=== PATIENT | male | born 1945 | race Caucasian/White ===

== ENCOUNTER → 2021-02-13 | Outpatient (CLI) | payer MEDICARE ==
--- NOTE | 2021-02-14 09:21 | CT ---
EXAMINATION TYPE: CT angio neck DATE OF EXAM: 02/13/2021 HISTORY: left side stenosis COMPARISON: 03/19/2013 CT DLP: 397.6 mGycm. Automated Exposure Control for Dose Reduction was Utilized. TECHNIQUE: CTA scan of the neck is performed with IV Contrast, patient injected with 65 mL of Isovue 370, axial images are obtained, coronal and sagittal reformatted images are reviewed. 3D reconstruct ed images are created on an independent workstation and reviewed. FINDINGS: Visualized subclavian arteries are patent in the aorta is patent. Mild atherosclerotic plaq ue. The brachiocephalic artery appears to be patent. The common carotid arteries appear to be of norm al caliber and patent proximally. There is atherosclerotic plaque at the left carotid bifurcation. Within the proximal left ICA there i s an 80-90% proximal left ICA stenosis. At the level of the carotid bifurcation on the right there is complete occlusion of the external wallis tid artery. There is moderate soft atherosclerotic plaque and approximately 50-60% stenosis. There is prominence of the lower pole left thyroid suspicious for a 1.5 cm thyroid nodule. Hypertroph ic and degenerative changes of the spine. Biapical pleural thickening. IMPRESSION: 1. Severe 80-90% stenosis proximal left ICA 2. Moderate approximately 50-60% stenosis origin right ICA. 3. Occlusion right external carotid artery. 4. 1.5 cm lower pole left thyroid nodule. NASCET criteria was used in interpretation of this exam?
== END | disposition home or self-care (01) ==
LOC: RADCTMAIN 15:17
PROVIDERS: ATTEND Internal Medicine Interventional Cardiology
DX: I65.23 Occlusion and stenosis of bilateral carotid arteries (principal)
CPT/HCPCS: 82565; 84520; 70498; 36415; Q9967

== ENCOUNTER → 2021-03-28 | Outpatient (CLI) | payer MEDICARE | END | disposition home or self-care (01) | LOC: LABPAT 09:25 | PROVIDERS: ATTEND Surgery | DX: Z01.812 Encounter for preprocedural laboratory examination (principal); I63.232 Cerebral infarction due to unspecified occlusion or stenosis of left carotid arteries | CPT/HCPCS: 80051; 81003; 82565; 84520; 85025; 86850; 86900; 86901 ==

== ENCOUNTER 2021-04-02 08:36 | Inpatient (IN) | payer MEDICARE ==
[2021-03-28 10:56] LABS: Basophils % (A) 1 %; Eosinophils # (A) 0.1 k/uL (0-0.7); Eosinophils % (A) 2 %; HCT 41.3 % (39.0-53.0); Lymphocytes # (A) 1.1 k/uL (1.0-4.8); Lymphocytes % (A) 18 %; MCHC 33.9 g/dL (31.0-37.0); MCV 88.4 fL (80.0-100.0); Mean Platelet Volume 8.6; Monocytes # (A) 0.4 k/uL (0-1.0); Monocytes % (A) 6 %; Neutrophils # (A) 4.3 k/uL (1.3-7.7); Neutrophils % (A) 71 %; Platelet Count 195 k/uL (150-450); RBC 4.67 m/uL (4.30-5.90); RDW 12.6 % (11.5-15.5); WBC 6.1 k/uL (3.8-10.6)
[2021-03-28 11:17] LABS: African American GFR (CKD) >90 (>60 ml/min/1.73 sqM); Anion Gap 5 mmol/L; Blood Urea Nitrogen 16 mg/dL (9-20); Carbon Dioxide 29 mmol/L (22-30); Chloride 104 mmol/L (98-107); Non-African American GFR(CKD) 82 (>60 ml/min/1.73 sqM); Sodium 138 mmol/L (137-145)
[2021-03-28 11:18] LABS: Appearance,Urine Clear (Clear); Bilirubin,Urine Negative (Negative); Blood,Urine Negative (Negative); Color,Urine Yellow; Glucose,Urine (UA) Negative (Negative); Ketones,Urine Negative (Negative); Leukocyte Esterase,Urine Negative (Negative); Nitrite,Urine Negative (Negative); PH, Urine 6.5 (5.0-8.0); Protein,Urine Negative (Negative); Specific Gravity,Urine 1.016 (1.001-1.035); Urobilinogen,Urine <2.0 mg/dL (<2.0)
[2021-03-29 13:44] VITALS: BMI 25.5
[~2021-04-02 08:36] MED LIST: ALPRAZolam 0.25 MG TAB PO PRN; ALPRAZolam 0.5 MG TAB PO PRN; ASPIRIN 325 MG TAB PO PRN; ASPIRIN 81 MG PO PRN; CEFAZOLIN IRRIGATION PRN; CLOPIDOGREL 75 MG TAB PO PRN; DEXAMETHASONE SOD PHOSPHATE 4 MG/ML 1 ML VIAL IV ONE; HYDROmorphone 0.5 MG/0.5 ML SYRINGE IVP PRN; NITROGLYCERIN SL TABS 0.4 MG TAB SUBLINGUAL PRN; ONDANSETRON 4 MG/2 ML VIAL IVP ONE; SODIUM CHLORIDE 0.9% 1,000 ML in EMPTY BAG 1 BAG IV ONE; SODIUM CHLORIDE 0.9% IRRIGATION PRN; ceFAZolin 1,000 MG in SODIUM CHLORIDE 0.9% IRRIGATIO 250 ML IRRIGATION PRN
[2021-04-02] MEDS ORDERED: RX INFO: IV CONTRAST WAS GIVEN 1 EACH MISC MISCELLANE PRN (09:00)
[2021-04-02] MEDS ORDERED: SODIUM CHLORIDE 0.9% 1,000 ML IV ONE (09:16)
[2021-04-02] MEDS ORDERED: LIDOCAINE 1% INJ 10MG/ML (20 ML MDV) ONE ×2 (10:01→11:07)
[2021-04-02] MEDS ORDERED: DEXMEDETOMIDINE 200 MCG/2 ML VIAL IV ONE (11:15)
[2021-04-02] MEDS ORDERED: HEPARIN SODIUM,PORCINE 10,000 UNIT/ML 1 ML VIAL ONE (11:15)
[2021-04-02] MEDS ORDERED: PROTAMINE SULFATE 10 MG/ML 5 ML VIAL IV ONE (11:15)
[2021-04-02] MEDS ORDERED: hydrALAZINE HCL 20 MG/ML 1 ML VIAL ONE (11:15)
[2021-04-02] MEDS ORDERED: GLYCOPYRROLATE 0.2 MG/ML 2 ML VIAL ONE (11:15)
[2021-04-02] MEDS ORDERED: LABETALOL 5 MG/ML VIAL MDV ONE (11:15)
[2021-04-02] MEDS ORDERED: .fentaNYL (PF) 50 MCG/ML 2 ML AMP ONE (11:15)
[2021-04-02] MEDS ORDERED: MIDAZOLAM 2 MG/2 ML VIAL ONE (11:15)
[2021-04-02] MEDS ORDERED: LIDOCAINE 1% INJ 10MG/ML (20 ML MDV) SQ ONE (11:50)
[2021-04-02] MEDS ORDERED: IOPAMIDOL-250 100ML BTL INTRAARTER ONE (13:02)
[2021-04-02] MEDS ORDERED: MAG HYDROX/AL HYDROX/SIMETH 30 ML CUP PO PRN (13:24)
[2021-04-02] MEDS ORDERED: ATROPINE SULFATE 0.1 MG/ML 10ML SYRINGE IV PRN (13:24)
--- NOTE | 2021-04-02 13:33 | P.OP ---
Description of Procedure: Date: 04/02/2021 Preoperative diagnosis: Left internal carotid artery stenosis greater than 90% asymptomatic Postoperative diagnosis: Same Procedure: Left Transcarotid artery revascularization with stenting Surgeon: aEgle Serrano DO Pricing Coordinator: None Anesthesia: MAC Complications none Condition: Stable Flow reversal time: 10 minutes Lesion length: 20 mm Stent size: 8 x 40 mm Indication for procedure: 75-year-old gentleman who presented to the office secondary to carotid stenosis and was found to have greater than 90% narrowing on his left internal carotid artery on ultrasound as well as CT angiogram. After discussion with the patient for possible intervention it was determined that he would benefit from transfer carotid artery revascularization secondary to the fact that he has had multiple treatments of radiation to his neck for cancer. He presents today for such procedure. Operative narrative: After written and informed consent was obtained the patient all risks benefits and competitions were described the patient was brought to the [facility] and laid in a supine position. The area of the neck and groins were prepped and draped in usual sterile fashion after appropriate anesthetic was performed per the anesthesiologist. A timeout was performed in normal fashion and antibiotics were administered prior to incision. Utilizing ultrasound the left common carotid artery was located and a transverse incision was created overlying this area. Dissection was carried between the sternocleidomastoid musculature down to the carotid sheath. The sheath was then incised and the common carotid artery was located and dissected free in a circumferential manner and controlled with umbilical tape. Once controlled at tention was placed down to the common femoral vein on the right and utilizing ultrasound the vein was cannulated and the 8[place] sheath was placed in normal fashion. Attention was then placed back to the carotid artery and the patient was administered heparin and followed with ACTs and redosed as needed for ACT above 200. A pursestring suture was then placed at the common carotid artery with 6-0 Prolene and utilizing a multipurpose needle the common carotid artery was accessed and wire was placed followed by a 4-[place] sheath. Carotid angiogram was then obtained demonstrating significant stenosis greater than 90% in the internal carotid artery. Stiff wire was then placed followed by the 8 [place] sheath. Flow reversal was then established with the enroute SCRAP CRANE OPERATOR system after patient's blood pressure was increased to above 160, heart rate above 60 and ACT above 250. 014 wire was then placed across the lesion followed by a 5 x 30 mm balloon and balloon angioplasty was performed followed by an 8 x 40 mm [place] stent. Postdilatation was a performed and final angiogram was obtained demonstrating complete resolution of the stenosis. All guidewires and catheters were removed and the sheath was removed and the arteriotomy was secured with the previously placed pursestring suture. Hemostasis was assured with Gelfoam and thrombin. The femoral sheath was also removed and pressure was held for hemostasis. The patient all procedure well and was moving all extremities and following commands. She was then sent to PACU for recovery.
[2021-04-02] MEDS: SODIUM CHLORIDE 0.9% 1,000 ML IV SCH (14:16)
[2021-04-02] MEDS ORDERED: lisinopriL 20 MG TAB PO STA (15:26)
--- NOTE | 2021-04-02 16:06 | IR ---
EXAMINATION TYPE: IR stent intravas non coronary DATE OF EXAM: 04/02/2021 CLINICAL HISTORY: Left carotid stenosis. TECHNIQUE: Fluoroscopy. COMPARISON: CTA neck February 13, 2021. FINDINGS: Fluoroscopic guidance was provided during carotid angiogram with stent insertion procedure performed by Dr. Serrano. A total of 4 minutes 24 seconds of fluoroscopic time was utilized during the procedure and 0 spot images sent to PACS. IMPRESSION: As Above.
[2021-04-02] MEDS: LEVOTHYROXINE 75 MCG TAB PO SCH (18:09)
[2021-04-02] MEDS: LACTATED RINGERS 1,000 ML IV SCH ×2 (21:13→21:14)
[2021-04-03 04:04] VITALS: RESP 18
[2021-04-03] MEDS: LEVOTHYROXINE 75 MCG TAB PO SCH (06:22)
[2021-04-03] MEDS: SODIUM CHLORIDE 0.9% 1,000 ML IV SCH (06:22)
[2021-04-03] MEDS ORDERED: LEVOTHYROXINE 75 MCG TAB PO SCH (06:30)
[2021-04-03 06:55] LABS: Basophils % (A) 0 %; Eosinophils # (A) 0.1 k/uL (0-0.7); Eosinophils % (A) 2 %; HCT 35.3 % (39.0-53.0); HGB 12.5 gm/dL (13.0-17.5); Lymphocytes % (A) 12 %; MCH 30.7 pg (25.0-35.0); MCHC 35.4 g/dL (31.0-37.0); MCV 86.7 fL (80.0-100.0); Mean Platelet Volume 8.6; Monocytes # (A) 0.4 k/uL (0-1.0); Monocytes % (A) 5 %; Neutrophils # (A) 6.2 k/uL (1.3-7.7); Neutrophils % (A) 79 %; Platelet Count 160 k/uL (150-450); RBC 4.07 m/uL (4.30-5.90); RDW 12.6 % (11.5-15.5); WBC 7.8 k/uL (3.8-10.6)
[2021-04-03 07:07] LABS: African American GFR (CKD) >90 (>60 ml/min/1.73 sqM); Anion Gap 6 mmol/L; Blood Urea Nitrogen 16 mg/dL (9-20); Calcium 8.2 mg/dL (8.4-10.2); Carbon Dioxide 23 mmol/L (22-30); Chloride 110 mmol/L (98-107); Glucose 85 mg/dL (74-99); Non-African American GFR(CKD) 89 (>60 ml/min/1.73 sqM); Potassium 3.6 mmol/L (3.5-5.1); Sodium 139 mmol/L (137-145)
[2021-04-03] MEDS ORDERED: PANTOPRAZOLE 40 MG TABLET PO SCH (07:30)
[2021-04-03] MEDS ORDERED: CLOPIDOGREL 75 MG TAB PO SCH ×2 (09:00)
[2021-04-03] MEDS ORDERED: ASPIRIN 325 MG TAB PO SCH (09:00)
[2021-04-03] MEDS ORDERED: SILDENAFIL 20 MG TAB PO SCH (09:00)
[2021-04-03] MEDS ORDERED: lisinopriL 20 MG TAB PO SCH (09:00)
[2021-04-03] MEDS ORDERED: CHOLECALCIFEROL 25 MCG (1000 IU) TABLET PO SCH (09:00)
[2021-04-03] MEDS ORDERED: ASPIRIN 81 MG PO SCH (09:00)
--- NOTE | 2021-04-03 09:43 | P.DS ---
Providers Date of admission: 04/02/21 08:44 Expected date of discharge: 04/03/21 Attending physician: Eagle Serrano DO Consults: 04/02/21 13:24 Consult Physician Routine Consulting Provider: Americo Brown Reason/Comments: medical management Do you want consulting provider notified?: Yes Primary care physician: Adeola Madison Hospital Course: Discharge diagnosis: Left internal carotid artery stenosis greater than 90% symptomatic, status post left trans-carotid artery revascularization with stenting This a 75-year-old gentleman with medical history of carotid stenosis, hyperlipidemia, hypertension, GERD, hypothyroidism, and tachycardia who presented for carotid artery revascularization for greater than 90% stenosis of the left internal carotid artery as seen on CT angiogram of head and neck. He is postop day #1 for left trans-carotid artery revascularization with stenting. He has been up and ambulating. He has voided. He ate breakfast this morning and tolerated it well. He denies any focal deficits. Vital signs have been stable. Labs are unremarkable. Patient would like to be discharged home. Physical Exam: General appearance: The patient is alert, oriented, appears in no acute distress. HET: Head is normocephalic and atraumatic. Pupils are equal and reactive. Neck: Supple without lymphadenopathy. Trachea midline. Incision on left side and not well approximated, no hematoma or ecchymosis noted. Heart: S1 S2. Regular rate and rhythm. Lungs: Clear to auscultation. Abdomen: Soft, nontender, nondistended. Extremities: Normal skin color and turgor. No cyanosis, rash, ulceration, clubbing, or edema. Radial and pedal pulses are 2/4 bilaterally. Neurological: No focal deficits. Strength and sensation are grossly intact. The impression and plan of care has been dictated as directed. Dr. Serrano I performed a history and examination of this patient, discussed the same with the dictator. I agree with the dictator's note ,documented as a scribe. Any additional findings or plans will be noted. Procedures: Left trans-carotid artery revascularization with stenting Patient Condition at Discharge: Good Plan - Discharge Summary Discharge Rx Participant: Yes New Discharge Prescriptions: Continue Aspirin 81 mg PO DAILY Pantoprazole [Protonix] 40 mg PO DAILY Atorvastatin [Lipitor] 10 mg PO DAILY Clopidogrel [Plavix] 75 mg PO DAILY Sildenafil [Revatio] 20 mg PO DAILY Levothyroxine Sodium [Synthroid] 75 mcg PO DAILY Cholecalciferol [Vitamin D3 (25 Mcg = 1000 Iu)] 25 mcg PO DAILY lisinopriL 40 mg PO DAILY Discharge Medication List Aspirin 81 mg PO DAILY 03/29/21 [History] Atorvastatin [Lipitor] 10 mg PO DAILY 03/29/21 [History] Cholecalciferol [Vitamin D3 (25 Mcg = 1000 Iu)] 25 mcg PO DAILY 03/29/21 [History] Clopidogrel [Plavix] 75 mg PO DAILY 03/29/21 [History] Levothyroxine Sodium [Synthroid] 75 mcg PO DAILY 03/29/21 [History] Pantoprazole [Protonix] 40 mg PO DAILY 03/29/21 [History] Sildenafil [Revatio] 20 mg PO DAILY 03/29/21 [History] lisinopriL 40 mg PO DAILY 03/29/21 [History] Follow up Appointment(s)/Referral(s): Eagle Serrano DO [STAFF PHYSICIAN] - 04/10/21 2:15 pm Patient Instructions/Handouts: Carotid Artery Stent Placement (DC) Activity/Diet/Wound Care/Special Instructions: No Heavy lifting or strenuous activity until follow-up with Dr. Serrano. No tub bathing or soaking until follow-up with Dr. Serrano. You may shower within the next 24 hours with soap and water. Continue all home medications. Discharge Disposition: HOME SELF-CARE
[2021-04-03 10:46] VITALS: BP 127/68; PULSE 50; TEMP 97.6
== END 2021-04-03 11:43 | disposition home or self-care (01) | DRG 36 ==
LOC: 2ORMAIN 08:44 → 3SCARD 15:13
PROVIDERS: ADMIT Family Medicine; ATTEND Surgery
PROC: B3171ZZ Fluoroscopy of Left Internal Carotid Artery using Low Osmolar Contrast (ICD-10-PCS; principal; 2021-04-02 11:00)
PROC: 037L3DZ Dilation of Left Internal Carotid Artery with Intraluminal Device, Percutaneous Approach (ICD-10-PCS; principal; 2021-04-02 11:00)
DX: I65.22 Occlusion and stenosis of left carotid artery (principal); K21.9 Gastro-esophageal reflux disease without esophagitis; I10 Essential (primary) hypertension; E78.5 Hyperlipidemia, unspecified; E03.9 Hypothyroidism, unspecified; Z79.890 Hormone replacement therapy; Z20.822 Contact with and (suspected) exposure to COVID-19
CPT/HCPCS: 37215; 80048; 80051; 81003; 82565; 84520; 85025; 86850; 86900; 86901; 87635

== ENCOUNTER 2021-05-06 19:47 | Emergency (ER) | payer MEDICARE ==
[2021-05-06 20:36] VITALS: RESP 16
[2021-05-06 20:58] LABS: Basophils % (A) 1 %; Eosinophils # (A) 0.1 k/uL (0-0.7); Eosinophils % (A) 1 %; HCT 41.9 % (39.0-53.0); HGB 14.2 gm/dL (13.0-17.5); Lymphocytes # (A) 1.2 k/uL (1.0-4.8); Lymphocytes % (A) 26 %; MCH 29.9 pg (25.0-35.0); MCHC 33.8 g/dL (31.0-37.0); MCV 88.4 fL (80.0-100.0); Mean Platelet Volume 8.8; Monocytes # (A) 0.4 k/uL (0-1.0); Monocytes % (A) 8 %; Neutrophils # (A) 2.9 k/uL (1.3-7.7); Neutrophils % (A) 61 %; Platelet Count 153 k/uL (150-450); RBC 4.74 m/uL (4.30-5.90); RDW 12.9 % (11.5-15.5); WBC 4.7 k/uL (3.8-10.6)
[2021-05-06 21:06] LABS: INR 0.9 (<1.2); Prothrombin Time 9.9 sec (9.0-12.0)
[2021-05-06 21:28] LABS: ALT 30 U/L (4-49); AST 28 U/L (17-59); African American GFR (CKD) >90 (>60 ml/min/1.73 sqM); Alkaline Phosphatase 47 U/L (38-126); Anion Gap 7 mmol/L; Blood Urea Nitrogen 18 mg/dL (9-20); Calcium 8.9 mg/dL (8.4-10.2); Carbon Dioxide 25 mmol/L (22-30); Chloride 107 mmol/L (98-107); Glucose 98 mg/dL (74-99); Non-African American GFR(CKD) 82 (>60 ml/min/1.73 sqM); Sodium 139 mmol/L (137-145); Total Bilirubin 0.6 mg/dL (0.2-1.3); Total Protein 6.4 g/dL (6.3-8.2)
--- NOTE | 2021-05-06 21:29 | XR ---
EXAMINATION TYPE: XR chest 2V DATE OF EXAM: 05/06/2021 COMPARISON: NONE HISTORY: Pain TECHNIQUE: 2 views FINDINGS: The heart and mediastinum are normal. Lungs are clear. Diaphragm is normal. Bony thorax is intact. There is old healed posterior left-sided rib fracture. IMPRESSION: Normal chest.
[2021-05-06 22:44] VITALS: BP 162/80; PULSE 57
--- NOTE | 2021-05-06 23:13 | ED ---
Recheck HPI - General Chief Complaint: Recheck/Abnormal Lab/Rx Stated Complaint: high blood pressure Time Seen by Provider: 05/06/21 22:53 Source: patient, RN notes reviewed, old records reviewed Mode of arrival: ambulatory Limitations: no limitations - History of Present Illness Initial Comments: This is a 75-year-old male presents today for evaluation regards to flexion blood pressure and states it's difficult to control blood pressure for some time now. Recent carotid artery surgery about a month ago dizziness and changes in questioning moving some dizziness lightheadedness. Patient's been checking his blood pressure multiple times a day and recently noted to be significantly elevated. Her blood pressure evaluation. Does note that is that he does have appointment in 2 days for reevaluation by primary care. MD Complaint: abnormal lab (elevated BP), other (dizziness, weakness) -: week(s) Returns Today for: other (abnormal blood pressure) Symptoms Since Prior Visit: no new symptoms Context: planned re-check ([employer] BP tonight 200s/100s) Treatments Prior to Arrival: other medications (recently lowered LIsinopril 40 ..10...back to 20mg) - Related Data Home Medications Medication Instructions Recorded Confirmed Aspirin 81 mg PO DAILY 03/29/21 04/02/21 Atorvastatin [Lipitor] 10 mg PO DAILY 03/29/21 04/02/21 Cholecalciferol [Vitamin D3 (25 25 mcg PO DAILY 03/29/21 04/02/21 Mcg = 1000 Iu)] Clopidogrel [Plavix] 75 mg PO DAILY 03/29/21 04/02/21 Levothyroxine Sodium [Synthroid] 75 mcg PO DAILY 03/29/21 04/02/21 Pantoprazole [Protonix] 40 mg PO DAILY 03/29/21 04/02/21 Sildenafil [Revatio] 20 mg PO DAILY 03/29/21 03/29/21 lisinopriL 40 mg PO DAILY 03/29/21 04/02/21 Allergies Allergy/AdvReac Type Severity Reaction Status Date / Time No Known Allergies Allergy Verified 05/06/21 20:37 Review of Systems ROS Statement: Those systems with pertinent positive or pertinent negative responses have been documented in the HPI. ROS Other: All systems not noted in ROS Statement are negative. Past Medical History Past Medical History: Cancer, GERD/Reflux, Hyperlipidemia Additional Past Medical History / Comment(s): States blockages in Carotids.,Squamous cell carcinoma of the head, also had chemo approx. 8 years ago. History of Any Multi-Drug Resistant Organisms: None Reported Past Surgical History: No Surgical Hx Reported Additional Past Surgical History / Comment(s): Bx. of squamous cell, colonoscopy. Past Anesthesia/Blood Transfusion Reactions: No Reported Reaction Past Psychological History: Anxiety Smoking Status: Never smoker Past Alcohol Use History: None Reported Past Drug Use History: None Reported - Past Family History Mother Family Medical History: Cancer Father Family Medical History: Cancer General Exam Limitations: no limitations General appearance: alert, in no apparent distress Head exam: Present: atraumatic, normocephalic, normal inspection Eye exam: Present: normal appearance, PERRL, EOMI. Absent: scleral icterus, conjunctival injection, periorbital swelling ENT exam: Present: normal exam, mucous membranes moist Neck exam: Present: normal inspection. Absent: tenderness, meningismus, lymphadenopathy Respiratory exam: Present: normal lung sounds bilaterally. Absent: respiratory distress, wheezes, rales, rhonchi, stridor Cardiovascular Exam: Present: regular rate, normal rhythm, normal heart sounds. Absent: systolic murmur, diastolic murmur, rubs, gallop, clicks GI/Abdominal exam: Present: soft, normal bowel sounds. Absent: distended, tenderness, guarding, rebound, rigid Extremities exam: Present: normal inspection, full ROM, normal capillary refill. Absent: tenderness, pedal edema, joint swelling, calf tenderness Back exam: Present: normal inspection Neurological exam: Present: alert, oriented X3, CN II-XII intact Psychiatric exam: Present: normal affect, normal mood Skin exam: Present: warm, dry, intact, normal color. Absent: rash Course Vital Signs 05/06/21 05/06/21 20:32 22:42 Temperature 97.7 F Pulse Rate 54 L 57 L Respiratory 16 16 Rate Blood Pressure 199/86 162/80 O2 Sat by Pulse 98 99 Oximetry - Reevaluation(s) Reevaluation #1: 05/06/21 23:11 Medical record is reviewed Reevaluation #2: 05/06/21 23:11 Blood pressure is of normal acceptable limit here in the emergency department Reevaluation #3: 05/06/21 23:11 constipation length regarding need to continue Plavix, increased medication back to original dosing. Reevaluation #4: 05/06/21 23:12 Patient was informed results and questions are answered Medical Decision Making - Medical Decision Making 75 male presents today for evaluation of increased blood pressure. Her uncontrolled blood pressure at home since had carotid artery surgery left, patient is no acute symptoms here in the ER feels well pressures controlled will follow-up with primary care on Friday - Lab Data Result diagrams: 05/06/21 20:53 05/06/21 20:53 Lab Results 05/06/21 05/06/21 05/06/21 Range/Units 20:53 20:53 20:53 WBC 4.7 (3.8-10.6) k/uL RBC 4.74 (4.30-5.90) m/uL Hgb 14.2 (13.0-17.5) gm/dL Hct 41.9 (39.0-53.0) % MCV 88.4 (80.0-100.0) fL MCH 29.9 (25.0-35.0) pg MCHC 33.8 (31.0-37.0) g/dL RDW 12.9 (11.5-15.5) % Plt Count 153 (150-450) k/uL MPV 8.8 Neutrophils % 61 % Lymphocytes % 26 % Monocytes % 8 % Eosinophils % 1 % Basophils % 1 % Neutrophils # 2.9 (1.3-7.7) k/uL Lymphocytes # 1.2 (1.0-4.8) k/uL Monocytes # 0.4 (0-1.0) k/uL Eosinophils # 0.1 (0-0.7) k/uL Basophils # 0.0 (0-0.2) k/uL PT 9.9 (9.0-12.0) sec INR 0.9 (<1.2) APTT 23.0 (22.0-30.0) sec Sodium 139 (137-145) mmol/L Potassium 4.0 (3.5-5.1) mmol/L Chloride 107 (98-107) mmol/L Carbon Dioxide 25 (22-30) mmol/L Anion Gap 7 mmol/L BUN 18 (9-20) mg/dL Creatinine 0.92 (0.66-1.25) mg/dL Est GFR (CKD-EPI)AfAm >90 (>60 ml/min/1.73 sqM) Est GFR (CKD-EPI)NonAf 82 (>60 ml/min/1.73 sqM) Glucose 98 (74-99) mg/dL Calcium 8.9 (8.4-10.2) mg/dL Magnesium 2.0 (1.6-2.3) mg/dL Total Bilirubin 0.6 (0.2-1.3) mg/dL AST 28 (17-59) U/L ALT 30 (4-49) U/L Alkaline Phosphatase 47 (38-126) U/L Troponin I (0.000-0.034) ng/mL Total Protein 6.4 (6.3-8.2) g/dL Albumin 4.0 (3.5-5.0) g/dL 05/06/21 Range/Units 20:53 WBC (3.8-10.6) k/uL RBC (4.30-5.90) m/uL Hgb (13.0-17.5) gm/dL Hct (39.0-53.0) % MCV (80.0-100.0) fL MCH (25.0-35.0) pg MCHC (31.0-37.0) g/dL RDW (11.5-15.5) % Plt Count (150-450) k/uL MPV Neutrophils % % Lymphocytes % % Monocytes % % Eosinophils % % Basophils % % Neutrophils # (1.3-7.7) k/uL Lymphocytes # (1.0-4.8) k/uL Monocytes # (0-1.0) k/uL Eosinophils # (0-0.7) k/uL Basophils # (0-0.2) k/uL PT (9.0-12.0) sec INR (<1.2) APTT (22.0-30.0) sec Sodium (137-145) mmol/L Potassium (3.5-5.1) mmol/L Chloride (98-107) mmol/L Carbon Dioxide (22-30) mmol/L Anion Gap mmol/L BUN (9-20) mg/dL Creatinine (0.66-1.25) mg/dL Est GFR (CKD-EPI)AfAm (>60 ml/min/1.73 sqM) Est GFR (CKD-EPI)NonAf (>60 ml/min/1.73 sqM) Glucose (74-99) mg/dL Calcium (8.4-10.2) mg/dL Magnesium (1.6-2.3) mg/dL Total Bilirubin (0.2-1.3) mg/dL AST (17-59) U/L ALT (4-49) U/L Alkaline Phosphatase (38-126) U/L Troponin I <0.012 (0.000-0.034) ng/mL Total Protein (6.3-8.2) g/dL Albumin (3.5-5.0) g/dL - Radiology Data Radiology results: report reviewed (Chest x-rays negative for acute disease), image reviewed Disposition Clinical Impression: Hypertension, uncontrolled Disposition: HOME SELF-CARE Condition: Good Instructions (If sedation given, give patient instructions): Hypertensive Crisis (ED) Is patient prescribed a controlled substance at d/c from ED?: No Referrals: Americo Brown MD [STAFF PHYSICIAN] - 1-2 days
[2021-05-06 23:17] VITALS: TEMP 98.2
== END 2021-05-06 23:17 | disposition home or self-care (01) ==
LOC: EC 19:47
DX: I10 Essential (primary) hypertension (principal); E78.5 Hyperlipidemia, unspecified; K21.9 Gastro-esophageal reflux disease without esophagitis; F41.9 Anxiety disorder, unspecified; Z79.890 Hormone replacement therapy; Z79.82 Long term (current) use of aspirin; Z79.899 Other long term (current) drug therapy
CPT/HCPCS: 36415; 71046; 80053; 83735; 84484; 85025; 85610; 85730; 93005; 99284

== ENCOUNTER 2023-05-01 08:29 | Day surgery (SDC) | payer MEDICARE ==
[2023-04-23 16:20] VITALS: BMI 26.1
[~2023-05-01 08:29] MED LIST changes: -ALPRAZolam 0.25 MG TAB PO PRN; -ALPRAZolam 0.5 MG TAB PO PRN; -ASPIRIN 325 MG TAB PO PRN; -ASPIRIN 81 MG PO PRN; -CEFAZOLIN IRRIGATION PRN; -CLOPIDOGREL 75 MG TAB PO PRN; -DEXAMETHASONE SOD PHOSPHATE 4 MG/ML 1 ML VIAL IV ONE; -HYDROmorphone 0.5 MG/0.5 ML SYRINGE IVP PRN; +LACTATED RINGERS 1,000 ML IV SCH; -NITROGLYCERIN SL TABS 0.4 MG TAB SUBLINGUAL PRN; -ONDANSETRON 4 MG/2 ML VIAL IVP ONE; -SODIUM CHLORIDE 0.9% 1,000 ML in EMPTY BAG 1 BAG IV ONE; -SODIUM CHLORIDE 0.9% IRRIGATION PRN; -ceFAZolin 1,000 MG in SODIUM CHLORIDE 0.9% IRRIGATIO 250 ML IRRIGATION PRN
[2023-05-01 10:15] VITALS: TEMP 98.2
[2023-05-01] MEDS ORDERED: PROPOFOL 10 MG/ML 20 ML VIAL IV ONE (11:08)
--- NOTE | 2023-05-01 11:24 | P.GSHP ---
History of Present Illness H&P Date: 05/01/23 Chief Complaint: screening colonoscopy This a 77-year-old male presents today for screening colonoscopy. Patient denies any significant GI complaints. Past Medical History Past Medical History: Cancer, GERD/Reflux, Hearing Disorder / Deafness, Hyperlipidemia, Hypertension, Thyroid Disorder Additional Past Medical History / Comment(s): Low heart rate. 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 Vertigo. Tinnitus left ear. History of Any Multi-Drug Resistant Organisms: None Reported Past Surgical History: No Surgical Hx Reported Additional Past Surgical History / Comment(s): Biopsy of squamous cell, colonoscopy, left carotid stent, bilateral cataract surgery. Past Anesthesia/Blood Transfusion Reactions: No Reported Reaction Additional Past Anesthesia/Blood Transfusion Reaction / Comment(s): Vertigo. Past Psychological History: Anxiety Additional Psychological History / Comment(s): Hx of anxiety, no longer a problem. Smoking Status: Never smoker Past Alcohol Use History: None Reported Past Drug Use History: None Reported - Past Family History Mother Family Medical History: Cancer Father Family Medical History: Cancer Medications and Allergies Home Medications Medication Instructions Recorded Confirmed Type Levothyroxine Sodium [Synthroid] 75 mcg PO PC-LUNCH 03/29/21 05/01/23 History Pantoprazole [Protonix] 40 mg PO PC-LUNCH 03/29/21 05/01/23 History Atorvastatin Calcium [Lipitor] 80 mg PO PC-LUNCH 01/15/23 05/01/23 History Aspirin [Adult Low Dose Aspirin EC] 81 mg PO DAILY 04/23/23 05/01/23 History Cholecalciferol [Vitamin D3 (25 50 mcg PO DAILY 04/23/23 05/01/23 History Mcg = 1000 Iu)] Losartan Potassium 100 mg PO QAM 04/23/23 05/01/23 History Meclizine [Antivert] 12.5 mg PO QAM 04/23/23 05/01/23 History Allergies Allergy/AdvReac Type Severity Reaction Status Date / Time No Known Allergies Allergy Verified 05/01/23 09:55 Surgical - Exam Vital Signs Temp Pulse Resp BP Pulse Ox 98.2 F 54 L 18 198/86 97 05/01/23 09:53 05/01/23 09:53 05/01/23 09:53 05/01/23 09:53 05/01/23 09:53 - General well developed, well nourished, no distress - Eyes PERRL - ENT normal pinna, normal nares - Neck no masses - Respiratory normal expansion - Cardiovascular Rhythm: regular - Abdomen Abdomen: soft, non tender Assessment and Plan Assessment: We'll perform screening colonoscopy.
--- NOTE | 2023-05-01 11:26 | P.OP ---
Date of Procedure: 05/01/23 Preoperative Diagnosis: Greening colonoscopy Postoperative Diagnosis: Mild diverticulosis Procedure(s) Performed: Colonoscopy Anesthesia: MAC Surgeon: Von Ahn Pathology: none sent Condition: stable Disposition: PACU Description of Procedure: Patient's placed on the endoscopy table in the lateral position. He received IV sedation. Digital rectal exam was performed. . This revealed no abnormalities. Prostate was symmetrical without nodules. Flexible colonoscope was then placed the patient's anus and passed throughout the entire colon. The ileocecal valve was visualized. The cecum, ascending and transverse colon appeared normal. In the descending and; there is mild diverticular changes. The scope was then brought back and the rectum and this appeared normal. Scope withdrawn for patient.
[2023-05-01 11:27] VITALS: RESP 16
[2023-05-01 11:51] VITALS: BP 102/68; PULSE 50
== END 2023-05-01 12:09 | disposition home or self-care (01) ==
LOC: ORWHC2ENDO 08:29
PROVIDERS: ATTEND Surgery
DX: Z12.11 Encounter for screening for malignant neoplasm of colon (principal); K57.30 Diverticulosis of large intestine without perforation or abscess without bleeding; K21.9 Gastro-esophageal reflux disease without esophagitis; I73.9 Peripheral vascular disease, unspecified; H91.90 Unspecified hearing loss, unspecified ear; E78.5 Hyperlipidemia, unspecified; I10 Essential (primary) hypertension; E07.9 Disorder of thyroid, unspecified; H93.12 Tinnitus, left ear; Z98.42 Cataract extraction status, left eye; Z98.41 Cataract extraction status, right eye; F41.9 Anxiety disorder, unspecified; Z80.9 Family history of malignant neoplasm, unspecified; Z79.890 Hormone replacement therapy; Z79.82 Long term (current) use of aspirin; Z79.899 Other long term (current) drug therapy; Z85.89 Personal history of malignant neoplasm of other organs and systems; Z98.890 Other specified postprocedural states
CPT/HCPCS: J2704; G0121

== ENCOUNTER → 2024-09-30 | Outpatient (CLI) | payer MEDICARE ==
--- NOTE | 2024-10-05 13:35 | MR ---
EXAMINATION TYPE: MR brain wo con DATE OF EXAM: 09/30/2024 9:48 AM COMPARISON: CT 01/15/2023 CLINICAL INDICATION: Male, 79 years old with history of R42 DIZZINESS GIDDINESS R41.3 AMNESIA H81.12, Lightheadedness, Memory loss, Vertigo, Numbness bilat feet Left foot worse, Hx of Squamous cell skin cancer head and neck 15 yrs ago TECHNIQUE: Multiplanar, multiecho imaging on a 3.0 Susana magnet is performed through the brain. Stud y is performed within 24 hours of arrival to the hospital.Multiplanar, multiecho imaging on a 3.0 Crissy la magnet is performed through the knee. IV Contrast: mL (None, if empty) FINDINGS: The craniovertebral junction is normal. The pituitary is normal. Optic chiasm as visualized is norm al. Diffusion-weighted imaging is performed. No abnormal hyperintensity is present to suggest an acute i ntracranial infarct or acute ischemic change. No suspicious cranial signal abnormality. Ventricles and sulci are appropriate for the patient age. IMPRESSION: 1. Unremarkable MRI. [facility], , 10/05/2024 1:32 PM
== END | disposition home or self-care (01) ==
LOC: RADMRIMAIN 08:42
PROVIDERS: ATTEND Psychiatry & Neurology Neurology
DX: R41.3 Other amnesia (principal); H81.12 Benign paroxysmal vertigo, left ear
CPT/HCPCS: 70551

== ENCOUNTER 2024-10-19 18:40 | Observation (INO) | payer MEDICARE ==
--- NOTE | 2024-10-19 19:43 | ED ---
General Adult HPI - General Chief complaint: Syncope Stated complaint: High blood pressure, heart rate is high Time Seen by Provider: 10/19/24 19:03 Source: patient, family Mode of arrival: ambulatory Limitations: no limitations - History of Present Illness Initial comments: Dictation was produced using [employer] dictation software. please excuse any grammatical, word or spelling errors. Chief Complaint: 79-year-old male with low blood pressure readings at home History of Present Illness: Patient 71-year-old male states that he has history of chronic dizziness. Patient states for the last 2 to 3 days he has been having some dizziness. Thinks that it is due to the recent heat that has been affecting her community recently. States that he was dizzy checked his blood pressure at home is around 80/54. Patient has any palpitations. Denies any h eart problems. Denies any fever, chills or night sweats at the bedside he feels fine. Denies sensation of room spinning. No prodrome of symptoms prior to dizziness. Denies sensation of the room spinning. The ROS documented in this emergency department record has been reviewed and confirmed by me. Those systems with pertinent positive or negative responses have been documented in the HPI. All other systems are other negative and/or noncontributory. - Related Data Home Medications Medication Instructions Recorded Confirmed Levothyroxine Sodium [Synthroid] 75 mcg PO DAILY 03/29/21 10/19/24 Pantoprazole [Protonix] 40 mg PO AC-BRKFST 03/29/21 10/19/24 Atorvastatin Calcium [Lipitor] 80 mg PO DAILY 01/15/23 10/19/24 Aspirin [Adult Low Dose Aspirin EC] 81 mg PO DAILY 04/23/23 10/19/24 Losartan Potassium 100 mg PO HS 04/23/23 10/19/24 Meclizine [Antivert] 12.5 mg PO DAILY 04/23/23 10/19/24 Sildenafil Citrate 25 mg PO DAILY PRN 10/19/24 10/19/24 hydroCHLOROthiazide [Hydrodiuril] 12.5 mg PO DAILY 10/19/24 10/19/24 Allergies Allergy/AdvReac Type Severity Reaction Status Date / Time soap Allergy Unknown Verified 10/19/24 20:07 Review of Systems ROS Statement: Those systems with pertinent positive or pertinent negative responses have been documented in the HPI. ROS Other: All systems not noted in ROS Statement are negative. Past Medical History Past Medical History: Cancer, GERD/Reflux, Hearing Disorder / Deafness, Hyperlipidemia, Hypertension, Thyroid Disorder Additional Past Medical History / Comment(s): Low heart rate. 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 Vertigo. Tinnitus left ear. History of Any Multi-Drug Resistant Organisms: None Reported Past Surgical History: No Surgical Hx Reported Additional Past Surgical History / Comment(s): Biopsy of squamous cell, colonoscopy, left carotid stent, bilateral cataract surgery. Past Anesthesia/Blood Transfusion Reactions: No Reported Reaction Additional Past Anesthesia/Blood Transfusion Reaction / Comment(s): Vertigo. Past Psychological History: Anxiety Smoking Status: Never smoker Past Alcohol Use History: None Reported Past Drug Use History: None Reported - Past Family History Mother Family Medical History: Cancer Father Family Medical History: Cancer General Exam - General Exam Comments Initial Comments: PHYSICAL EXAM: General Impression: Alert and oriented x3, not in acute distress HEENT: Normocephalic atraumatic, extra-ocular movements intact, pupils equal and reactive to light bilaterally, mucous membranes moist. Cardiovascular: Heart regular rate and rhythm Chest: Able to complete full sentences, no retractions, no tachypnea Abdomen: abdomen soft, non-tender, non-distended, no organomegaly Musculoskeletal: Pulses present and equal in all extremities, no peripheral edema Motor: no focal deficits noted Neurological: CN II-XII grossly intact, no focal motor or sensory deficits noted Skin: Intact with no visualized rashes Psych: Normal affect and mood Limitations: no limitations Course Vital Signs 10/19/24 10/19/24 18:56 19:32 Temperature 98.1 F Pulse Rate 55 L 52 L Respiratory 18 18 Rate Blood Pressure 125/70 124/65 O2 Sat by Pulse 100 98 Oximetry EKG Findings - EKG Comments: EKG Findings:: My EKG interpretation: Ventricular rate 53, sinus bradycardia,. Of 177, QRS 97, QTc 4 5. No MI prolongation, no QTC prolongation, no ST or T- wave changes noted. Overall, this EKG is unremarkable Medical Decision Making - Medical Decision Making Was pt. sent in by a medical professional or institution (, PA, [employer], urgent care, hospital, or retirement...) When possible be specific @ -No Did you speak to anyone other than the patient for history (EMS, parent, family, police, friend...)? What history was obtained from this source @ -No Did you review nursing and triage notes (agree or disagree)? Why? @ -I reviewed and agree with nursing and triage notes Were old charts reviewed (outside hosp., previous admission, EMS record, old EKG, old radiological studies, urgent care reports/EKG's, retirement records)? Report findings @ -No old charts were reviewed Differential Diagnosis (chest pain, altered mental status, abdominal pain women, abdominal pain men, vaginal bleeding, musculoskeletal, weakness, fever, dyspnea, syncope, headache, dizziness, GI bleed, back pain, seizure, CVA, palpatations, mental health)? @ -Differential Dizziness: Benign paroxysmal positional Vertigo, Meniere's disease, otitis media, acoustic neuroma, vertebrobasilar insufficiency, cerebellar stroke, encephalitis, hypovolemic, arrhythmia, coronary artery syndrome, anemia, this is not meant to be an all-inclusive list EKG interpreted by me (3pts min.). @ -See above X-rays interpreted by me (1pt min.). @ -Chest x-ray shows no acute processes CT interpreted by me (1pt min.). @ -None done U/S interpreted by me (1pt. min.). @ -None done What testing was considered but not performed or refused? (CT, X-rays, U/S, labs)? Why? @ -None What meds were considered but not given or refused? Why? @ -None Was smoking cessation discussed for >3mins.? @ -No Were there social determinants of health that impacted care today? How? (Homelessness, low income, unemployed, alcoholism, drug addiction, transportation, low edu. Level, literacy, decrease access to med. care, [facility], rehab)? @ -No Was there de-escalation of care discussed even if they declined (Discuss DNR or withdrawal of care, Hospice)? DNR status @ -No What co-morbidities impacted this encounter? (DM, HTN, Smoking, COPD, CAD, Cancer, CVA, ARF, Chemo, Hep., AIDS, mental health diagnosis, sleep apnea, morbid obesity)? @ -None Was patient admitted / discharged? Hospital course, mention meds given and route, prescriptions, significant lab abnormalities, going to OR and other pertinent info. @ -71-year-old male presents with dizziness. States that he had low blood pres sure at home. Vital signs upon arrival are within acceptable limits. Blood pressure is normal laboratory evaluation shows MEGHANN. Troponins negative. Patient given fluids will be admitted consultation to nephrology. Case discussed with hospitalist for admission Did you discuss the management of the patient with other professionals (professionals i.e. , PA, [employer], lab, RT, psych nurse, social worker masters, milk deliverer, teacher, founder chairman and chief creative officer, oil field caser)? Give summary @ -No Was critical care preformed (if so, how long)? @ -No Undiagnosed new problem with uncertain prognosis? @ -No Drug Therapy requiring intensive monitoring for toxicity (Heparin, Nitro, Insulin, Cardizem)? @ -No Were any procedures done? @ -No Diagnosis/symptom? Acute, or Chronic, or Acute on Chronic? Uncomplicated (without systemic symptoms) or Complicated (systemic symptoms)? @ -Acute kidney injury Side effects of treatment? @ -No Exacerbation, Progression, or Severe Exacerbation? @ -No Poses a threat to life or bodily function? How? (Chest pain, [place], [place], pneumonia, PE, COPD, DKA, ARF, appy, cholecystitis, CVA, Diverticulitis, Homicidal, Suicidal, threat to staff... and all critical care pts) @ -yes - Lab Data Result diagrams: 10/19/24 20:00 10/19/24 20:00 Lab Results 10/19/24 10/19/24 10/19/24 Range/Units 20:00 20:00 20:00 WBC 8.69 (4.50-10.00) 10*3/uL RBC 4.76 (4.40-5.60) 10*6/uL Hgb 14.4 (13.0-17.0) g/dL Hct 41.4 (39.6-50.0) % MCV 87.0 (80.0-97.0) fL MCH 30.3 (27.0-32.0) pg MCHC 34.8 (32.0-37.0) g/dL Plt Count 208 (140-440) 10*3/uL MPV 10.5 (9.5-12.2) fL Immature Gran % (Auto) 0.3 % Neutrophils % 78.2 % Lymphocytes % 11.7 % Monocytes % 8.6 % Eosinophils % 0.7 % Basophils % 0.5 % Immature Gran # 0.03 (0.00-0.04) 10*3/uL Neutrophils # 6.79 (1.80-7.70) 10*3/uL Lymphocytes # 1.02 (0.90-5.00) 10*3/uL Monocytes # 0.75 (0.20-1.00) 10*3/uL Eosinophils # 0.06 (0.04-0.35) 10*3/uL Basophils # 0.04 (0.00-0.10) 10*3/uL Sodium 137 (137-145) mmol/L Potassium 4.0 (3.5-5.1) mmol/L Chloride 99 (98-107) mmol/L Carbon Dioxide 27 (22-30) mmol/L Anion Gap 11 mmol/L BUN 54 H (9-20) mg/dL Creatinine 2.36 H (0.66-1.25) mg/dL Est GFR (CKD-EPI)AfAm 29 (>60 ml/min/1.73 sqM) Est GFR (CKD-EPI)NonAf 25 (>60 ml/min/1.73 sqM) Glucose 108 H (74-99) mg/dL Calcium 9.4 (8.4-10.2) mg/dL Magnesium 2.5 H (1.6-2.3) mg/dL Total Bilirubin 0.6 (0.2-1.3) mg/dL AST 23 (17-59) U/L ALT 19 (4-49) U/L Alkaline Phosphatase 68 (38-126) U/L Troponin I <0.012 (0.000-0.034) ng/mL Total Protein 6.6 (6.3-8.2) g/dL Albumin 4.3 (3.5-5.0) g/dL Disposition Clinical Impression: MEGHANN (acute kidney injury) Disposition: ADMITTED IP TO THIS HOSP Condition: Fair Referrals: Adeola Brown DO [Primary Care Provider] - 1-2 days Decision Time: 20:00
[2024-10-19 20:06] LABS: Basophils # (A) 0.04 10*3/uL (0.00-0.10); Basophils % (A) 0.5 %; Eosinophils # (A) 0.06 10*3/uL (0.04-0.35); Eosinophils % (A) 0.7 %; HCT 41.4 % (39.6-50.0); HGB 14.4 g/dL (13.0-17.0); Lymphocytes # (A) 1.02 10*3/uL (0.90-5.00); Lymphocytes % (A) 11.7 %; MCH 30.3 pg (27.0-32.0); MCHC 34.8 g/dL (32.0-37.0); Mean Platelet Volume 10.5 fL (9.5-12.2); Monocytes # (A) 0.75 10*3/uL (0.20-1.00); Monocytes % (A) 8.6 %; Neutrophils # (A) 6.79 10*3/uL (1.80-7.70); Neutrophils % (A) 78.2 %; Platelet Count 208 10*3/uL (140-440); RBC 4.76 10*6/uL (4.40-5.60); RDW 12.2 % (11.5-14.5); WBC 8.69 10*3/uL (4.50-10.00)
[2024-10-19] MEDS: SODIUM CHLORIDE 0.9% 1,000 ML IV STA ×2 (20:16→22:03)
--- NOTE | 2024-10-19 20:18 | XR ---
EXAMINATION TYPE: XR chest 2V DATE OF EXAM: 10/19/2024 8:09 PM COMPARISON: Chest. 01/15/2023. CLINICAL INDICATION: Male, 79 years old with history of syncope; [facility] TECHNIQUE: XR chest 2V Frontal and lateral views of the chest. FINDINGS: Lungs/Pleura: There is no evidence of pleural effusion, focal consolidation, or pneumothorax. Pulmonary vascularity: Unremarkable. Heart/mediastinum: Cardiomediastinal silhouette is unremarkable. Musculoskeletal: No acute osseous pathology. Other findings: None IMPRESSION: No acute cardiopulmonary disease/process. [facility], , 10/19/2024 8:15 PM
[2024-10-19 20:19] LABS: ALT 19 U/L (4-49); AST 23 U/L (17-59); African American GFR (CKD) 29 (>60 ml/min/1.73 sqM); Albumin 4.3 g/dL (3.5-5.0); Alkaline Phosphatase 68 U/L (38-126); Anion Gap 11 mmol/L; Blood Urea Nitrogen 54 mg/dL (9-20); Calcium 9.4 mg/dL (8.4-10.2); Carbon Dioxide 27 mmol/L (22-30); Chloride 99 mmol/L (98-107); Glucose 108 mg/dL (74-99); Magnesium 2.5 mg/dL (1.6-2.3); Non-African American GFR(CKD) 25 (>60 ml/min/1.73 sqM); Sodium 137 mmol/L (137-145); Total Bilirubin 0.6 mg/dL (0.2-1.3); Total Protein 6.6 g/dL (6.3-8.2)
[2024-10-19] MEDS ORDERED: NALOXONE 0.4 MG/ML 1 ML VIAL IV PRN (21:03)
[2024-10-20 11:37] LABS: African American GFR (CKD) 57 (>60 ml/min/1.73 sqM); Anion Gap 6 mmol/L; Blood Urea Nitrogen 38 mg/dL (9-20); Calcium 8.9 mg/dL (8.4-10.2); Carbon Dioxide 30 mmol/L (22-30); Chloride 102 mmol/L (98-107); Glucose 94 mg/dL (74-99); Non-African American GFR(CKD) 50 (>60 ml/min/1.73 sqM); Potassium 4.3 mmol/L (3.5-5.1); Sodium 138 mmol/L (137-145)
--- NOTE | 2024-10-20 11:39 | P.HPIM ---
History of Present Illness Patient pleasant 79-year-old male came in with complaints of dizziness and low blood pressure readings at home. Patient is found to have blood pressure of 80 x 54. Patient is on lisinopril and hydrochlorothiazide at home. Patient is found to have acute renal failure with creatinine going up to 2.5 baseline within normal limits. About dementia medications were held and patient was started on IV fluids. Patient is mildly bradycardic with heart rate going to 50s and as low as 40s. Patient has sinus bradycardia repeating EKG to make sure patient does not have any second-grader third-degree heart block. Patient d enied fever chills nausea vomiting dysuria. REVIEW OF SYSTEMS: All other systems are negative except those mentioned in the HPI PHYSICAL EXAMINATION: GENERAL: The patient is alert and oriented x3, not in any acute distress. Well developed, well nourished. HEENT: Pupils are round and equally reacting to light. EOMI. No scleral icterus. No conjunctival pallor. Normocephalic, atraumatic. No pharyngeal erythema. No thyromegaly. CARDIOVASCULAR: S1 and S2 present. No murmurs, rubs, or gallops. PULMONARY: Chest is clear to auscultation, no wheezing or crackles. ABDOMEN: Soft, nontender, nondistended, normoactive bowel sounds. No palpable organomegaly. MUSCULOSKELETAL: No joint swelling or deformity. EXTREMITIES: No cyanosis, clubbing, or pedal edema. NEUROLOGICAL: Gross neurological examination did not reveal any focal deficits. SKIN: No rashes. Assessment and plan -Acute renal failure secondary to lisinopril and hydrochlorothiazide both those are being held patient may have acute tubular necrosis from hypotension as well. Patient will continue on IV fluids. Monitor kidney function. - Dizziness secondary to hypotension from above-mentioned medications which are being held at this time - Sinus bradycardia I do not believe sinus bradycardia is contributing His symptoms of dizziness patient presently does not have any dizziness. - Hypertension patient is hypotensive - Gastroesophageal reflux disease - Hypothyroidism will obtain TSH - Hyperlipidemia DVT prophylaxis: Subcutaneous heparin Past Medical History Past Medical History: Cancer, GERD/Reflux, Hearing Disorder / Deafness, Hyperlipidemia, Hypertension, Thyroid Disorder Additional Past Medical History / Comment(s): Low heart rate. 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 Vertigo. Tinnitus left ear. History of Any Multi-Drug Resistant Organisms: None Reported Past Surgical History: No Surgical Hx Reported Additional Past Surgical History / Comment(s): Biopsy of squamous cell, colonoscopy, left carotid stent, bilateral cataract surgery. Past Anesthesia/Blood Transfusion Reactions: No Reported Reaction Additional Past Anesthesia/Blood Transfusion Reaction / Comment(s): Vertigo. Past Psychological History: Anxiety Smoking Status: Never smoker Past Alcohol Use History: None Reported Past Drug Use History: None Reported - Past Family History Mother Family Medical History: Cancer Father Family Medical History: Cancer Medications and Allergies Home Medications Medication Instructions Recorded Confirmed Type Levothyroxine Sodium [Synthroid] 75 mcg PO DAILY 03/29/21 10/19/24 History Pantoprazole [Protonix] 40 mg PO AC-BRKFST 03/29/21 10/19/24 History Atorvastatin Calcium [Lipitor] 80 mg PO DAILY 01/15/23 10/19/24 History Aspirin [Adult Low Dose Aspirin EC] 81 mg PO DAILY 04/23/23 10/19/24 History Losartan Potassium 100 mg PO HS 04/23/23 10/19/24 History Meclizine [Antivert] 12.5 mg PO DAILY 04/23/23 10/19/24 History Sildenafil Citrate 25 mg PO DAILY PRN 10/19/24 10/19/24 History hydroCHLOROthiazide [Hydrodiuril] 12.5 mg PO DAILY 10/19/24 10/19/24 History Allergies Allergy/AdvReac Type Severity Reaction Status Date / Time soap Allergy Unknown Verified 10/19/24 20:07 Physical Exam Vitals: Vital Signs Temp Pulse Resp BP Pulse Ox 10/20/24 08:07 97.7 F 42 L 16 143/60 95 10/20/24 06:04 45 L 16 139/65 96 10/20/24 00:02 51 L 16 121/66 98 10/19/24 19:32 52 L 18 124/65 98 10/19/24 18:56 98.1 F 55 L 18 125/70 100 Intake and Output 10/19/24 10/20/24 10/20/24 22:59 06:59 14:59 Other: Weight 81.647 kg Results CBC & Chem 7: 10/19/24 20:00 10/20/24 11:10 Labs: Abnormal Lab Results - Last 24 Hours (Table) 06/24/25 06/25/25 Range/Units 20:00 11:10 BUN 54 H 38 H (9-20) mg/dL Creatinine 2.36 H 1.36 H (0.66-1.25) mg/dL Glucose 108 H (74-99) mg/dL Magnesium 2.5 H (1.6-2.3) mg/dL
[2024-10-20] MEDS: SODIUM CHLORIDE 0.9% 1,000 ML IV SCH (13:27)
--- NOTE | 2024-10-20 13:51 | P.NPCON ---
History of Present Illness - Reason for Consult acute renal failure - History of Present Illness patient is a 79-year-old male with history of hypertension and hypothyroidism. He came into the hospital as he had been feeling weak when he had been outdoors in the heat for a fair. Patient denied any significant nausea or vomiting. He denied any change in his urine output. Blood pressure was apparently low initially with systolic in the 80s. Patient is maintained on angiotensin receptor blockers and hydrochlorothiazide for hypertension. Currently maintained on IV fluids. No previous history of kidney diseases. serum creatinine was 2.3 yesterday and is down to 1.3 today. Previous creatinine 0.8 on 01/15/2023 Past Medical History Past Medical History: Cancer, GERD/Reflux, Hearing Disorder / Deafness, Hyperlipidemia, Hypertension, Thyroid Disorder Additional Past Medical History / Comment(s): Low heart rate. 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 Vertigo. Tinnitus left ear. History of Any Multi-Drug Resistant Organisms: None Reported Past Surgical History: No Surgical Hx Reported Additional Past Surgical History / Comment(s): Biopsy of squamous cell, colonoscopy, left carotid stent, bilateral cataract surgery. Past Anesthesia/Blood Transfusion Reactions: No Reported Reaction Additional Past Anesthesia/Blood Transfusion Reaction / Comment(s): Vertigo. Past Psychological History: Anxiety Smoking Status: Never smoker Past Alcohol Use History: None Reported Past Drug Use History: None Reported - Past Family History Mother Family Medical History: Cancer Father Family Medical History: Cancer Medications and Allergies Home Medications Medication Instructions Recorded Confirmed Type Levothyroxine Sodium [Synthroid] 75 mcg PO DAILY 03/29/21 10/19/24 History Pantoprazole [Protonix] 40 mg PO AC-BRKFST 03/29/21 10/19/24 History Atorvastatin Calcium [Lipitor] 80 mg PO DAILY 01/15/23 10/19/24 History Aspirin [Adult Low Dose Aspirin EC] 81 mg PO DAILY 04/23/23 10/19/24 History Losartan Potassium 100 mg PO HS 04/23/23 10/19/24 History Meclizine [Antivert] 12.5 mg PO DAILY 04/23/23 10/19/24 History Sildenafil Citrate 25 mg PO DAILY PRN 10/19/24 10/19/24 History hydroCHLOROthiazide [Hydrodiuril] 12.5 mg PO DAILY 10/19/24 10/19/24 History Allergies Allergy/AdvReac Type Severity Reaction Status Date / Time soap Allergy Unknown Verified 10/19/24 20:07 Physical Exam Vitals: Vital Signs Temp Pulse Resp BP Pulse Ox 10/20/24 08:07 97.7 F 42 L 16 143/60 95 10/20/24 06:04 45 L 16 139/65 96 10/20/24 00:02 51 L 16 121/66 98 10/19/24 19:32 52 L 18 124/65 98 10/19/24 18:56 98.1 F 55 L 18 125/70 100 Intake and Output 10/19/24 10/20/24 10/20/24 22:59 06:59 14:59 Other: Weight 81.647 kg patient is awake, comfortable, no acute distress. 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 Acute kidney injury, ATN secondary to hypotension and hypovolemia in the setting of use of ARBs, improved with IV hydration. Check UA. Check ultrasound if no further improvement with IV hydration. 2. Hypokalemia status post IV fluids 3. Hypertension with blood pressure on the lower side on initial admission, losartan and hydrochlorothiazide on hold. 4. History of hypothyroidism maintained on supplementation Plan: continue with IV fluids Continue to hold off on losartan and hydrochlorothiazide Repeat labs in a.m. Check UA Check ultrasound if no further improvement in renal function Thank you for the consultation. Continue to follow the patient with you during his hospitalization.
[2024-10-20 17:43] LABS: Appearance,Urine Clear (Clear); Bilirubin,Urine Negative (Negative); Blood,Urine Negative (Negative); Color,Urine Colorless; Glucose,Urine (UA) Negative (Negative); Ketones,Urine Negative (Negative); Leukocyte Esterase,Urine Negative (Negative); Nitrite,Urine Negative (Negative); PH, Urine 5.5 (5.0-8.0); Protein,Urine Negative (Negative); Specific Gravity,Urine 1.014 (1.001-1.035); Urobilinogen,Urine <2.0 mg/dL (<2.0)
[2024-10-20] MEDS: HEPARIN SODIUM,PORCINE 5,000 UNIT/ML 1 ML VIAL SQ SCH (21:32)
[2024-10-20 22:51] VITALS: RESP 16
[2024-10-21] MEDS: LEVOTHYROXINE 75 MCG TAB PO SCH (06:12)
[2024-10-21] MEDS: ASPIRIN 81 MG PO SCH (08:13)
[2024-10-21] MEDS: ATORVASTATIN 80 MG TAB PO SCH (08:13)
[2024-10-21] MEDS: PANTOPRAZOLE 40 MG TABLET PO SCH (08:13)
[2024-10-21 10:41] LABS: BUN/Creat Ratio 30.27 Ratio (12.00-20.00); Blood Urea Nitrogen 33.3 mg/dL (9.0-27.0); Calcium 8.3 mg/dL (8.7-10.3); Carbon Dioxide 24.8 mmol/L (21.6-31.8); Chloride 107 mmol/L (96-109); Glucose 86 mg/dL (70-110); Potassium 4.3 mmol/L (3.5-5.5); Sodium 141 mmol/L (135-145)
[2024-10-21 13:10] VITALS: BP 137/62; PULSE 48; TEMP 97.9
--- NOTE | 2024-10-21 13:14 | P.PN ---
Subjective Patient is seen for follow-up for acute kidney injury. Renal function has improved significantly with creatinine down to 1.1 mg/dL. No significant complaints except for loose bowel movement last night Objective - Vital Signs Vital signs: Vital Signs Temp 97.6 F 10/21/24 06:55 Pulse 53 L 10/21/24 06:55 Resp 16 10/21/24 06:55 BP 132/69 10/21/24 06:55 Pulse Ox 97 10/21/24 06:55 FiO2 Intake & Output 10/20/24 10/21/24 10/21/24 18:59 06:59 18:59 Weight 81.647 kg Other: Voiding Method Toilet # Voids 2 - Exam patient is awake, comfortable, no acute distress. 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 Acute kidney injury, ATN secondary to hypotension and hypovolemia in the setting of use of ARBs, improved with IV hydration. UA is benign. Check ultrasound if no further improvement with IV hydration. 2. Hypokalemia status post IV fluids 3. Hypertension with blood pressure on the lower side on initial admission, losartan and hydrochlorothiazide on hold. 4. History of hypothyroidism maintained on supplementation Plan: continue with IV fluids May resume losartan if blood pressure is elevated. I will hold off on ultrasound as renal function has improved significantly with IV hydration.
--- NOTE | 2024-10-21 13:58 | P.DS ---
Providers Date of admission: 10/19/24 21:03 Attending physician: Dulce Feliz Consults: 10/19/24 21:03 Consult Physician Routine Consulting Provider: Eryn Chávez Consult Reason/Comments: rustam Do you want consulting provider notified?: Yes Primary care physician: [facility] Course: Patient pleasant 79-year-old male came in with complaints of dizziness and low blood pressure readings at home. Patient is found to have blood pressure of 80 x 54. Patient is on lisinopril and hydrochlorothiazide at home. Patient is found to have acute renal failure with creatinine going up to 2.5 baseline with in normal limits. About dementia medications were held and patient was started on IV fluids. Patient is mildly bradycardic with heart rate going to 50s and as low as 40s. Patient has sinus bradycardia repeating EKG to make sure patient does not have any second-grader third-degree heart block. Patient denied fever chills nausea vomiting dysuria. 10/21/2024 Patient's creatinine significantly improved came down to 1.1 from 2.6 on admission. Patient is mildly bradycardic but this is sinus bradycardia. No further intervention regarding this. Patient will be discharged today will hold off on hydrochlorothiazide upon discharge. Patient blood pressure is within normal limits but I expected to go up a little bit because of which I will cut down the dose of losartan from 100 to 25 mg upon discharge. Patient did not receive losartan during this hospitalization. If needed losartan dose can be increased as an outpatient. PHYSICAL EXAMINATION: GENERAL: The patient is alert and oriented x3, not in any acute distress. Well developed, well nourished. HEENT: Pupils are round and equally reacting to light. EOMI. No scleral icterus. No conjunctival pallor. Normocephalic, atraumatic. No pharyngeal erythema. No thyromegaly. CARDIOVASCULAR: S1 and S2 present. No murmurs, rubs, or gallops. PULMONARY: Chest is clear to auscultation, no wheezing or crackles. ABDOMEN: Soft, nontender, nondistended, normoactive bowel sounds. No palpable organomegaly. MUSCULOSKELETAL: No joint swelling or deformity. EXTREMITIES: No cyanosis, clubbing, or pedal edema. NEUROLOGICAL: Gross neurological examination did not reveal any focal deficits. SKIN: No rashes. Assessment and plan -Acute renal failure secondary to lisinopril and hydrochlorothiazide both those were held patient may have acute tubular necrosis from hypotension as well. Creatinine improved with IV fluids and holding of those medications. - Dizziness secondary to hypotension from above-mentioned medications which are being held at this time - Sinus bradycardia I do not believe sinus bradycardia is contributing His symptoms of dizziness patient presently does not have any dizziness. - Hypertension patient is hypotensive admission normotensive now. Will be discharged on decreased dose of losartan - Gastroesophageal reflux disease - Hypothyroidism TSH is within normal limits. - Hyperlipidemia Patient Condition at Discharge: Fair Plan - Discharge Summary Discharge Rx Participant: Yes New Discharge Prescriptions: New Losartan [Cozaar] 25 mg PO DAILY #30 tab Continue Pantoprazole [Protonix] 40 mg PO [id number]-[id number] Meclizine [Antivert] 12.5 mg PO DAILY Sildenafil Citrate 25 mg PO DAILY PRN PRN Reason: 30min prior to sexual activity Levothyroxine Sodium [Synthroid] 75 mcg PO DAILY Atorvastatin Calcium [Lipitor] 80 mg PO DAILY Aspirin [Adult Low Dose Aspirin EC] 81 mg PO DAILY Discontinued hydroCHLOROthiazide [Hydrodiuril] 12.5 mg PO DAILY Losartan Potassium 100 mg PO HS Discharge Medication List Levothyroxine Sodium [Synthroid] 75 mcg PO DAILY 03/29/21 [History] Pantoprazole [Protonix] 40 mg PO [id number] 03/29/21 [History] Atorvastatin Calcium [Lipitor] 80 mg PO DAILY 01/15/23 [History] Aspirin [Adult Low Dose Aspirin EC] 81 mg PO DAILY 04/23/23 [History] Meclizine [Antivert] 12.5 mg PO DAILY 04/23/23 [History] Sildenafil Citrate 25 mg PO DAILY PRN 10/19/24 [History] Losartan [Cozaar] 25 mg PO DAILY #30 tab 10/21/24 [Rx] Follow up Appointment(s)/Referral(s): Adeola Brown DO [Primary Care Provider] - 1-2 days Discharge Disposition: HOME SELF-CARE
== END 2024-10-21 14:43 | disposition home or self-care (01) ==
LOC: EC 18:40 → 5NMEDONC 21:03 → INTOOBSV 21:03 → 5NMEDONC 10-20 17:04
PROVIDERS: ADMIT Hospitalist; ATTEND Hospitalist
DX: N17.0 Acute kidney failure with tubular necrosis (principal); T46.4X5A Adverse effect of angiotensin-converting-enzyme inhibitors, initial encounter; F03.94 Unspecified dementia, unspecified severity, with anxiety; R00.1 Bradycardia, unspecified; I10 Essential (primary) hypertension; I95.9 Hypotension, unspecified; K21.9 Gastro-esophageal reflux disease without esophagitis; E03.9 Hypothyroidism, unspecified; E87.6 Hypokalemia; E86.1 Hypovolemia; H91.90 Unspecified hearing loss, unspecified ear; E78.5 Hyperlipidemia, unspecified; Z79.899 Other long term (current) drug therapy; Z79.890 Hormone replacement therapy; Z79.82 Long term (current) use of aspirin; Z85.89 Personal history of malignant neoplasm of other organs and systems
CPT/HCPCS: 96361 ×3; 96372; 96360; 99285; 36415; 93005; 80053; 80048 ×2; 84443; 83735; 84484; 85025; 81003; 71046; G0378 ×2; J1644